=== PATIENT | female | born 1990 | race Two or more races ===

== ENCOUNTER 2019-09-27 07:13 | Emergency (ER) | payer SELFPAY ==
[~2019-09-27] VITALS: Ht 160 cm; Wt 54.4 kg
--- NOTE | 2019-09-27 07:25 | NUR ---
PT BIBSELF C/O GENERALIZED BODY RASH/HIVES X1 DAY DENIES ANY RECENT NEW FOOD/PRODUCTS/MEDICATIONS. PT AAOX4, VSS, BREATHING EVEN AND UNLABORED W/ NO ACUTE DISTRESS NOTED. PT DENIES SOB AND ITCHING AT THIS TIME. PT CONNECTED TO THE MONITOR.
[2019-09-27] MEDS ORDERED: EPINEPHRINE (1:1000) 1 MG/ML AMPUL ONE (07:43)
[2019-09-27] MEDS ORDERED: DEXAMETHASONE SOD PHOSPHATE 4 MG/ML VIAL ONE (07:43)
[2019-09-27] MEDS ORDERED: diphenhydrAMINE HCL 50 MG CAPSULE ONE (07:44)
[2019-09-27] MEDS ORDERED: FAMOTIDINE (20 MG) 20 MG TABLET ONE ×3 (07:44→07:51)
[2019-09-27] MEDS ORDERED: FAMOTIDINE (20 MG) 20 MG TABLET PO ONE (08:00)
[2019-09-27] MEDS ORDERED: diphenhydrAMINE HCL 50 MG CAPSULE PO ONE (08:00)
[2019-09-27] MEDS ORDERED: DEXAMETHASONE SOD PHOSPHATE 4 MG/ML VIAL IM ONE (08:00)
[2019-09-27] MEDS ORDERED: EPINEPHRINE (1:1000) 1 MG/ML AMPUL SUBCUT ONE (08:00)
--- NOTE | 2019-09-27 08:22 | NUR ---
Patient discharged to home in stable condition. Written and verbal after care instructions given. Patient verbalizes understanding of instruction.
[2019-09-27 08:23] VITALS: BP 141/51
== END 2019-09-27 08:24 | disposition home or self-care (01) ==
LOC: ER 07:16
DX: L50.9 Urticaria, unspecified (principal)
CPT/HCPCS: 96372 ×2; 99283; J0171; J1100; Q0163